=== PATIENT | male | born 1985 | race Native Hawaiian/Other Pacific Islander ===

== ENCOUNTER 2021-05-08 19:16 | Emergency (ER) | payer BC, OTHER ==
[2021-05-08 19:42] VITALS: BP 139/89; PULSE 83; RESP 18; TEMP 98.2
--- NOTE | 2021-05-08 20:19 | XR ---
EXAMINATION TYPE: XR hand complete LT DATE OF EXAM: 05/08/2021 COMPARISON: NONE HISTORY: Pain TECHNIQUE: 3 views FINDINGS: Metacarpals are intact. I see no fracture nor dislocation. Joint spaces are normal. There a re no erosions. The fingers are intact. IMPRESSION: Negative left hand exam.
--- NOTE | 2021-05-08 20:23 | ED ---
Upper Extremity HPI - General Chief Complaint: Extremity Injury, Upper Stated Complaint: lt hand injury Time Seen by Provider: 05/08/21 19:44 Source: patient Mode of arrival: ambulatory - History of Present Illness Initial Comments: 35-year-old male patient presents to the emergency department today for evaluation of left hand pain after striking it with a sledgehammer yesterday. Patient states that at rest the hand is fine but when he starts doing work it starts to ache. She reports pain in the hand radiating down to the wrist. Denies previous injury to the hand. Denies any numbness or tingling. Denies any other injuries or concerns. - Related Data Previous Rx's Medication Instructions Recorded Ibuprofen 600 mg PO Q6HR #30 tablet 09/12/17 Allergies Allergy/AdvReac Type Severity Reaction Status Date / Time No Known Allergies Allergy Verified 05/08/21 19:42 Review of Systems ROS Statement: Those systems with pertinent positive or pertinent negative responses have been documented in the HPI. ROS Other: All systems not noted in ROS Statement are negative. Past Medical History Past Medical History: No Reported History History of Any Multi-Drug Resistant Organisms: None Reported Past Surgical History: No Surgical Hx Reported Past Psychological History: No Psychological Hx Reported Smoking Status: Never smoker Past Alcohol Use History: None Reported Past Drug Use History: None Reported General Exam General appearance: alert, in no apparent distress, other (This is a well- developed, well-nourished adult male patient in no acute distress. Vital signs upon presentation are temperature 98.2F, pulse 83, respirations 18, blood pressure 139/89, pulse ox 98% on room air.) Respiratory exam: Present: normal lung sounds bilaterally. Absent: respiratory distress, wheezes, rales, rhonchi, stridor Cardiovascular Exam: Present: regular rate, normal rhythm, normal heart sounds. Absent: systolic murmur, diastolic murmur, rubs, gallop, clicks Extremities exam: Present: full ROM, normal capillary refill, other (There is mild soft tissue swelling noted over the dorsal aspect of the left hand. Tenderness noted over the first metacarpal. Skin is otherwise pink, warm, dry. Cap refill less than 3 seconds. Radial pulses are 2+ and equal bilaterally.). Absent: normal inspection, tenderness, pedal edema, joint swelling, calf tenderness Neurological exam: Present: alert, oriented X3, CN II-XII intact Psychiatric exam: Present: normal affect, normal mood Skin exam: Present: warm, dry, intact, normal color. Absent: rash Course Vital Signs 05/08/21 19:39 Temperature 98.2 F Pulse Rate 83 Respiratory 18 Rate Blood Pressure 139/89 O2 Sat by Pulse 98 Oximetry Medical Decision Making - Medical Decision Making 35-year-old male patient presents for evaluation of left hand pain after striking it with a sledgehammer yesterday. Physical examination did reveal soft tissue swelling over the dorsal aspect of the left hand. Some bony tenderness over the first metacarpal. X-rays were obtained and were negative for any acute fracture. I did discuss findings and results with the patient. He is instructed to apply ice, rest, elevate the hand. Is instructed to follow-up with his primary care physician for recheck in 1 week if symptoms are not improved. Return parameters were discussed in detail. He verbalizes understanding and agrees with these plans. My attending is Dr. Franz. - Radiology Data Radiology results: report reviewed, image reviewed 3 views of the left hand are obtained. Report was reviewed in its entirety. Impression by Dr. Castro shows negative left hand exam. Disposition Clinical Impression: Contusion of left hand Disposition: HOME SELF-CARE Condition: Good Instructions (If sedation given, give patient instructions): Contusion in Adults (ED) Additional Instructions: Rest, ice, elevate the hand. Take Tylenol and Motrin for pain control. Follow up with the primary care physician for recheck in 1 week if your symptoms are not improved. Return for any new, worsening, or concerning symptoms. Is patient prescribed a controlled substance at d/c from ED?: No Referrals: Stefan Jeffries MD [Primary Care Provider] - 1-2 days Time of Disposition: 20:23
== END 2021-05-08 20:26 | disposition home or self-care (01) ==
LOC: EC 19:16
DX: S60.222A Contusion of left hand, initial encounter (principal); W27.8XXA Contact with other nonpowered hand tool, initial encounter
CPT/HCPCS: 99283

== ENCOUNTER 2021-05-16 | Emergency (ER) | payer BC, OTHER | END 2021-05-16 15:40 | disposition other institution (70) | CPT/HCPCS: 99291; 31500; 36415; 36600; 94002; 93005; 86900; 86901; 84439; 84481; 80053; 82550; 84484; 85025; 85610; 85730; 86850; 81001; 80306; 80320; 87070; 87205; 87635; 72170; 71045; 72125; 70450; 71260; 74177; 96360; 96361; J0330; J2250; J2704; Q9967 ==